=== PATIENT | male | born 1995 | race American Indian/Alaskan Native ===

== ENCOUNTER 2020-02-13 17:34 | Emergency (ER) | payer SELFPAY ==
[2020-02-13 18:12] VITALS: BP 156/84
--- NOTE | 2020-02-13 18:14 | Event Note ---
ED Screening Note Date of service: 02/13/20 Time: 18:12 ED Screening Note: complains of left substernal chest pain x 2 days and right posterior headache x 1 day denies trying any OTC meds for the PLATT; denies head injuries; 7/10 pain rates chest pain as 5/10 in severity hx of asthma, denies SOB This initial assessment/diagnostic orders/clinical plan/treatment(s) is/are subject to change based on patients health status, clinical progression and re- assessment by fellow clinical providers in the ED. Further treatment and workup at subsequent clinical providers discretion. Patient/guardian urged not to elope from the ED as their condition may be serious if not clinically assessed and managed. Initial orders include: ekg CXR
[2020-02-13 18:46] LABS: Basophils % (Auto) 0.6 % (0.0-1.8); Eosinophils # (Auto) 0.1 K/mm3 (0.0-0.4); Eosinophils % (Auto) 1.2 % (0.0-4.3); Hematocrit 42.5 % (35.5-45.6); Hemoglobin 14.3 gm/dl (11.8-15.2); Lymphocytes # (Auto) 2.5 K/mm3 (1.2-5.4); Lymphocytes % (Auto) 34.6 % (13.4-35.0); Mean Corpuscular HGB Conc 34 % (32-34); Mean Corpuscular Volume 90 fl (84-94); Monocytes # (Auto) 0.5 K/mm3 (0.0-0.8); Monocytes % (Auto) 7.4 % (0.0-7.3); Platelet Count 279 K/mm3 (140-440); Red Cell Distribution Width 12.8 % (13.2-15.2)
[2020-02-13 19:06] LABS: Alanine Aminotransferase 27 units/L (7-56); Albumin 4.4 g/dL (3.9-5); BUN/Creatinine Ratio 17; Blood Urea Nitrogen 15 mg/dL (9-20); Calcium 9.4 mg/dL (8.4-10.2); Hemolysis Index 17
--- NOTE | 2020-02-13 19:10 | XRay Report ---
CHEST 2 VIEWS 1839 INDICATION / CLINICAL INFORMATION: substernal chest pain COMPARISON: None available. FINDINGS: SUPPORT DEVICES: None. HEART / MEDIASTINUM: No significant abnormality. LUNGS / PLEURA: No significant pulmonary or pleural abnormality. No pneumothorax. ADDITIONAL FINDINGS: No significant additional findings. IMPRESSION: No significant acute abnormality Signer Name: Ilia Faulkner MD Signed: 02/13/2020 7:06 PM Workstation Name: [id number]
--- NOTE | 2020-02-13 21:01 | Emergency Department Report ---
ED General Adult HPI - General Chief complaint: Headache Stated complaint: CHEST PAINS HEADACHE Time Seen by Provider: 02/13/20 18:12 Source: patient Mode of arrival: Ambulatory Limitations: No Limitations - History of Present Illness Initial comments: Patient is 24 years old male with no significant past medical history. Patient presented to the ER initially complaining of headache and chest pain. By the time I examined the patient patient stated that his symptoms completely resolved. Patient stated that he just wanted to go home and he want work note so he can go back to work tomorrow. Patient denied any fever or chills. No weakness numbness or tingling sensation. No shortness of breath. - Related Data Allergies Allergy/AdvReac Type Severity Reaction Status Date / Time No Known Allergies Allergy Unverified 02/13/20 18:09 ED Review of Systems ROS: Stated complaint: CHEST PAINS HEADACHE Other details as noted in HPI Comment: All other systems reviewed and negative Constitutional: denies: chills, fever Respiratory: denies: cough, shortness of breath, SOB with exertion Cardiovascular: chest pain. denies: palpitations Neurological: headache. denies: weakness, numbness, paresthesias, confusion, abnormal gait ED Past Medical Hx - Past Medical History Previous Medical History?: Yes Hx Asthma: Yes - Surgical History Past Surgical History?: No ED Physical Exam - General Limitations: No Limitations General appearance: alert, in no apparent distress - Head Head exam: Present: atraumatic, normocephalic, normal inspection - Eye Eye exam: Present: normal appearance - ENT ENT exam: Present: normal exam, normal orophraynx, mucous membranes moist - Neck Neck exam: Present: normal inspection, full ROM. Absent: tenderness, meningismus - Respiratory Respiratory exam: Present: normal lung sounds bilaterally - Cardiovascular Cardiovascular Exam: Present: regular rate, normal rhythm, normal heart sounds - GI/Abdominal GI/Abdominal exam: Present: soft, normal bowel sounds. Absent: distended, tenderness, guarding, rebound, rigid, organomegaly, mass, bruit, pulsatile mass, hernia - Extremities Exam Extremities exam: Present: normal inspection, full ROM, normal capillary refill. Absent: tenderness - Back Exam Back exam: Present: normal inspection, full ROM. Absent: CVA tenderness (R), CVA tenderness (L) - Neurological Exam Neurological exam: Present: alert, oriented X3, CN II-XII intact, normal gait, reflexes normal. Absent: motor sensory deficit - Psychiatric Psychiatric exam: Present: normal mood - Skin Skin exam: Present: warm, intact, normal color ED Course Vital Signs 02/13/20 18:11 Temperature 98.2 F Pulse Rate 64 Respiratory 18 Rate Blood Pressure 156/84 [Right] O2 Sat by Pulse 98 Oximetry ED Medical Decision Making - Lab Data Result diagrams: 02/13/20 18:34 02/13/20 18:34 - EKG Data -: EKG Interpreted by Me EKG shows normal: sinus rhythm Rate: normal - EKG Data Interpretation: no acute changes - Radiology Data Radiology results: report reviewed - Medical Decision Making Patient is 24 years old male with no significant past medical history. Patient presented to the ER initially complaining of headache and chest pain. By the time I examined the patient patient stated that his symptoms completely resolved. Patient stated that he just wanted to go home and he want work note so he can go back to work tomorrow. Patient denied any fever or chills. No w eakness numbness or tingling sensation. No shortness of breath. EKG is unremarkable. Chest x-ray is negative for acute finding. Patient symptoms completely resolved. Patient advised to follow-up with his primary doctor in the next 2 to 3 days and to return to the ER if he develop any new symptoms. Critical care attestation.: If time is entered above; I have spent that time in minutes in the direct care of this critically ill patient, excluding procedure time. ED Disposition Clinical Impression: Chest pain, Headache Disposition: DC-01 TO HOME OR SELFCARE Is pt being admited?: No Condition: Stable Instructions: Chest Pain (ED), Acute Headache (ED) Referrals: PRIMARY CARE,MD [Primary Care Provider] - 3-5 Days Forms: Work/School Release Form(ED)
== END 2020-02-13 21:10 | disposition home or self-care (01) ==
LOC: ED 17:34
DX: R07.89 Other chest pain (principal); R51.9 Headache, unspecified; J45.909 Unspecified asthma, uncomplicated
CPT/HCPCS: 36415; 71046; 80053; 84484; 85025; 93005